=== PATIENT | male | born 1965 | race Two or more races ===

== ENCOUNTER 2022-04-25 09:26 | Emergency (ER) | payer SELFPAY ==
[~2022-04-25] VITALS: Ht 167.6 cm; Wt 89.8 kg
[2022-04-25] MEDS ORDERED: TETANUS-DIPTH-ACEL PERTUSSIS 0.5ML SYR Tdap IM ONE (10:00)
[2022-04-25] MEDS ORDERED: LIDOCAINE 1% HCL (LOCAL ANESTH.) INJ 20ML MDV IJ ONE (10:00)
[2022-04-25 10:15] VITALS: BP 156/72
[2022-04-25] MEDS ORDERED: CEPH500C PO (10:23)
[2022-04-25] MEDS ORDERED: IBUP800T27 PO (10:23)
== END 2022-04-25 10:31 | disposition home or self-care (01) ==
LOC: ER 09:26
DX: S61.442A Puncture wound with foreign body of left hand, initial encounter (principal); Z88.0 Allergy status to penicillin; X58.XXXA Exposure to other specified factors, initial encounter; Y93.89 Activity, other specified; Y92.89 Other specified places as the place of occurrence of the external cause; Y99.8 Other external cause status
CPT/HCPCS: 73130; 90471; 90715; 99284; J2001